=== PATIENT | female | born 1940 | race Caucasian/White ===

== ENCOUNTER 2025-07-20 06:25 | Day surgery (SDC) | payer OTHER, SELFPAY ==
[2025-07-20 09:40] LABS: Glucose - Point of Care 197 mg/dl (70-99)
== END 2025-07-20 12:04 | disposition home or self-care (01) ==
LOC: GI 06:25
PROVIDERS: ATTENDING PHYSICIAN Internal Medicine Gastroenterology
DX: D50.0 Iron deficiency anemia secondary to blood loss (chronic) (principal); K62.5 Hemorrhage of anus and rectum; R19.4 Change in bowel habit; K57.30 Diverticulosis of large intestine without perforation or abscess without bleeding; K64.9 Unspecified hemorrhoids; C20 Malignant neoplasm of rectum; K22.2 Esophageal obstruction; K44.9 Diaphragmatic hernia without obstruction or gangrene; K31.819 Angiodysplasia of stomach and duodenum without bleeding; D12.0 Benign neoplasm of cecum; D12.3 Benign neoplasm of transverse colon; K29.50 Unspecified chronic gastritis without bleeding; B96.81 Helicobacter pylori [H. pylori] as the cause of diseases classified elsewhere
CPT/HCPCS: 45385; 43255; 45380; 43239; 82962; 88305; 88341; 88342

== ENCOUNTER → 2025-08-03 10:47 | Outpatient (REF) | payer OTHER, SELFPAY | LOC: RAD 10:47 | PROVIDERS: ATTENDING PHYSICIAN Surgery; FAMILY PHYSICIAN Family Medicine | DX: C20 Malignant neoplasm of rectum (principal) | CPT/HCPCS: 71260; 74177; Q9967 ==

== ENCOUNTER → 2025-08-07 09:40 | Outpatient (REF) | payer OTHER, SELFPAY | LOC: MRI 3T 09:40 | PROVIDERS: ATTENDING PHYSICIAN Surgery; FAMILY PHYSICIAN Family Medicine | DX: C20 Malignant neoplasm of rectum (principal) | CPT/HCPCS: 72197; A9575 ==

== ENCOUNTER 2025-08-08 06:21 | Day surgery (SDC) | payer OTHER, SELFPAY ==
[2025-08-08 10:04] LABS: Glucose - Point of Care 170 mg/dl (70-99)
== END 2025-08-08 10:54 | disposition home or self-care (01) ==
LOC: GI 06:21
PROVIDERS: ATTENDING PHYSICIAN Surgery
DX: C20 Malignant neoplasm of rectum (principal); C18.9 Malignant neoplasm of colon, unspecified
CPT/HCPCS: 45330; 82962

== ENCOUNTER 2025-08-08 12:57 | Outpatient (RCR) | payer OTHER, SELFPAY ==
[2025-07-25 13:05] VITALS: BP 146/56
[2025-07-25] MEDS: VENOFER 110 MG IV (13:19)
[2025-07-25 14:40] VITALS: BP 131/48
[2025-08-01] MEDS: VENOFER 110 MG IV (13:21)
[2025-08-01 13:26] VITALS: BP 131/48
[2025-08-01 14:45] VITALS: BP 143/52
[2025-08-08 13:05] VITALS: BP 127/54
[2025-08-08] MEDS: VENOFER 110 MG IV (13:17)
== END 2025-08-09 08:36 | disposition home or self-care (01) ==
LOC: OID 12:57
PROVIDERS: ATTENDING PHYSICIAN Internal Medicine Gastroenterology; FAMILY PHYSICIAN Family Medicine
DX: D50.0 Iron deficiency anemia secondary to blood loss (chronic) (principal); K62.5 Hemorrhage of anus and rectum
CPT/HCPCS: 96365; J1756

== ENCOUNTER 2025-08-22 10:44 | Outpatient (RCR) | payer OTHER, SELFPAY ==
[2025-08-15 13:10] VITALS: BP 113/58
[2025-08-15] MEDS: VENOFER 110 MG IV (13:24)
[2025-08-22 10:45] VITALS: BP 135/51
[2025-08-22] MEDS: VENOFER 110 MG IV (11:29)
[2025-08-22 12:25] VITALS: BP 126/52
== END 2025-08-23 09:15 | disposition home or self-care (01) ==
LOC: OID 10:44
PROVIDERS: ATTENDING PHYSICIAN Internal Medicine Gastroenterology; FAMILY PHYSICIAN Family Medicine
DX: D50.0 Iron deficiency anemia secondary to blood loss (chronic) (principal); K62.5 Hemorrhage of anus and rectum; K92.1 Melena
CPT/HCPCS: 96365; J1756